=== PATIENT | male | born 1945 | race Asian ===

== ENCOUNTER 2020-04-24 07:02 | Day surgery (SDC) | payer OTHER, SELFPAY ==
--- NOTE | 2020-04-20 16:42 | NUR ---
COPY OF EKG RESULT WAS FAXED TO DR. ABREU'S OFFICE AND SENT TO OR. DEPT. FOR ANESTHESIOLOGIST FOR REVIEW. DR. ABREU HAD NO FURTHER ORDER AT THIS TIME.
[~2020-04-24] VITALS: Ht 167.6 cm; Wt 72.1 kg
[2020-04-24 07:42] VITALS: BP 139/98
[2020-04-24 15:25] VITALS: BP 138/84
== END 2020-04-24 12:45 | disposition home or self-care (01) ==
LOC: DS 07:02 → OR 08:30 → DS 12:45
PROVIDERS: ATTEND Urology
DX: C67.0 Malignant neoplasm of trigone of bladder (principal); C67.5 Malignant neoplasm of bladder neck; C67.4 Malignant neoplasm of posterior wall of bladder; C67.2 Malignant neoplasm of lateral wall of bladder; Z11.59 Encounter for screening for other viral diseases
CPT/HCPCS: 88344; J0690; J2250; J2405; J2704; J3010; J7030; J7120; U0003-CS

== ENCOUNTER 2020-08-18 09:49 | Day surgery (SDC) | payer OTHER, SELFPAY ==
--- NOTE | 2020-08-17 15:32 | NUR ---
EKG AND LAB TEST REVIEWED BY DR. Jose Luis OGDEN FOR SURGERY 08-18-20.
[~2020-08-18] VITALS: Ht 167.6 cm; Wt 72.1 kg
[2020-08-18 10:31] VITALS: BP 128/84
[2020-08-18 16:05] VITALS: BP 145/88
== END 2020-08-18 16:00 | disposition home or self-care (01) ==
LOC: DS 09:49 → OR 12:00 → DS 12:00
PROVIDERS: ATTEND Urology
DX: C67.1 Malignant neoplasm of dome of bladder (principal); E66.9 Obesity, unspecified; Z68.25 Body mass index [BMI] 25.0-25.9, adult
CPT/HCPCS: J0690; J2250; J2270; J2704; J3010; J7120; J9280